=== PATIENT | female | born 1975 | race Caucasian/White ===

== ENCOUNTER 2018-04-07 15:58 | Outpatient (REF) | payer BC, SELFPAY ==
[2018-04-07 22:36] LABS: ALT 31 U/L (12-78); AST 21 U/L (15-37); Alkaline Phosphatase 51 U/L (46-116); Anion Gap 3.1 mmol/L (3-11); BUN 13 mg/dL (7-18); Bilirubin, Total 0.8 mg/dL (0.2-1.0); CO2 29.9 mmol/L (21.0-32.0); CREATININE 0.84 mg/dL (0.55-1.02); Calcium 9.1 mg/dL (8.5-10.1); Chloride 105 mmol/L (98-107); Glucose 123 mg/dL (70-100); Potassium 3.8 mmol/L (3.5-5.1); Sodium 138 mmol/L (136-145); TSH (W/Ref FT4) 12.78 uIU/mL (0.358-3.74); Total Protein 7.3 g/dL (6.4-8.2)
[2018-04-07 23:59] LABS: FREE T4 0.87 ng/dL (0.76-1.46)
== END 2018-04-07 16:18 ==
LOC: NCHCN 15:58
PROVIDERS: PCP Family Medicine; Visit Provider Family Medicine
DX: E03.9 Hypothyroidism, unspecified (principal); E10.9 Type 1 diabetes mellitus without complications
CPT/HCPCS: 80053; 84439; 84443

== ENCOUNTER 2018-05-24 09:04 | Outpatient (REF) | payer BC, SELFPAY ==
[2018-05-24 21:48] LABS: TSH (W/Ref FT4) 6.64 uIU/mL (0.358-3.74)
[2018-05-24 22:04] LABS: FREE T4 1.05 ng/dL (0.76-1.46)
== END 2018-05-24 09:24 ==
LOC: NCHCN 09:04
PROVIDERS: PCP Family Medicine; Visit Provider Family Medicine
DX: E03.9 Hypothyroidism, unspecified (principal)
CPT/HCPCS: 84439; 84443

== ENCOUNTER 2018-11-03 09:33 | Outpatient (REF) | payer BC, SELFPAY ==
[2018-11-03 22:16] LABS: TSH 7.62 uIU/mL (0.358-3.74)
== END 2018-11-03 09:53 ==
LOC: NCHCN 09:33
PROVIDERS: PCP Family Medicine; Visit Provider Registered Nurse
DX: E03.9 Hypothyroidism, unspecified (principal)
CPT/HCPCS: 84443

== ENCOUNTER 2019-02-02 08:55 | Outpatient (REF) | payer BC, SELFPAY ==
[2019-02-02 22:55] LABS: TSH 2.89 uIU/mL (0.358-3.74)
[2019-02-02 23:32] LABS: COMMENT (LAB VIEW ONLY) 24.43 mg/dL; Microalb ug/mg Crea 19.6 ug/mg Cr
== END 2019-02-02 09:15 ==
LOC: NCHCN 08:55
PROVIDERS: PCP Family Medicine; Visit Provider Registered Nurse
DX: E03.9 Hypothyroidism, unspecified (principal); E10.9 Type 1 diabetes mellitus without complications
CPT/HCPCS: 82043; 82570; 84443

== ENCOUNTER 2019-09-15 10:03 | Outpatient (REF) | payer OTHER, SELFPAY ==
[2019-09-15 21:28] LABS: TSH 7.74 uIU/mL (0.36-3.74)
== END 2019-09-15 10:23 ==
LOC: NCHCN 10:03
PROVIDERS: PCP Family Medicine; Visit Provider Registered Nurse
DX: E03.9 Hypothyroidism, unspecified (principal)
CPT/HCPCS: 84443

== ENCOUNTER 2020-03-14 22:16 | Outpatient (REF) | payer OTHER, SELFPAY ==
[2020-03-14 20:13] LABS: Calculated LDL 72 mg/dL (<100); Cholesterol 145 mg/dL (<200); HDL Cholesterol 68 mg/dL (40-60); TSH (W/Ref FT4) 1.79 uIU/mL (0.36-3.74); Triglyceride 27 mg/dL (<150)
== END 2020-03-14 22:36 ==
LOC: NCHCN 22:16
PROVIDERS: PCP Family Medicine; Visit Provider Registered Nurse
DX: E03.9 Hypothyroidism, unspecified (principal); E10.9 Type 1 diabetes mellitus without complications
CPT/HCPCS: 80061; 84443

== ENCOUNTER 2020-09-26 09:01 | Outpatient (REF) | payer OTHER, SELFPAY ==
[2020-09-26 13:23] LABS: Anion Gap 9.7 mmol/L (3-11); BUN 13 mg/dL (7-18); CO2 27.3 mmol/L (21.0-32.0); CREATININE 0.7 mg/dL (0.55-1.02); Calcium 8.7 mg/dL (8.5-10.1); Chloride 106 mmol/L (98-107); Glucose 63 mg/dL (74-106); Potassium 3.9 mmol/L (3.5-5.1); Sodium 143 mmol/L (136-145); TSH (W/Ref FT4) 1.42 uIU/mL (0.36-3.74)
[2020-09-26 13:59] LABS: COMMENT (LAB VIEW ONLY) < 13.00 mg/dL
== END 2020-09-26 09:02 | disposition home or self-care (01) ==
LOC: NCHCN 09:01
PROVIDERS: PCP Family Medicine; Visit Provider Registered Nurse
DX: E10.9 Type 1 diabetes mellitus without complications (principal); E03.9 Hypothyroidism, unspecified; Z00.00 Encounter for general adult medical examination without abnormal findings
CPT/HCPCS: 80048; 82043; 82570; 84443

== ENCOUNTER 2021-04-18 10:13 | Outpatient (REF) | payer OTHER, SELFPAY ==
[2021-04-18 14:14] LABS: Calculated LDL 77 mg/dL (<100); Cholesterol 163 mg/dL (<200); HDL Cholesterol 78 mg/dL (40-60); Triglyceride 40 mg/dL (<150)
== END 2021-04-18 10:14 | disposition home or self-care (01) ==
LOC: LBN 10:13
PROVIDERS: PCP Family Medicine; Referring Provider Nurse Practitioner Family; Visit Provider Family Medicine
DX: E10.9 Type 1 diabetes mellitus without complications (principal)
CPT/HCPCS: 80061

== ENCOUNTER 2021-07-02 10:15 | Outpatient (REF) | payer OTHER, SELFPAY ==
[2021-07-02 15:47] LABS: ALT 30 U/L (14-59); AST 14 U/L (15-37); Albumin 4.2 g/dL (3.4-5.0); Alkaline Phosphatase 57 U/L (46-116); Anion Gap 9.6 mmol/L (3-11); BUN 16 mg/dL (7-18); Bilirubin, Total 0.8 mg/dL (0.2-1.0); CO2 26.4 mmol/L (21.0-32.0); CREATININE 0.8 mg/dL (0.55-1.02); Calcium 9.1 mg/dL (8.5-10.1); Calculated LDL 82 mg/dL (<100); Chloride 100 mmol/L (98-107); Cholesterol 160 mg/dL (<200); Glucose 247 mg/dL (74-106); HDL Cholesterol 66 mg/dL (40-60); Potassium 4.7 mmol/L (3.5-5.1); Sodium 136 mmol/L (136-145); TSH 1.72 uIU/mL (0.36-3.74); Total Protein 7.2 g/dL (6.4-8.2); Triglyceride 63 mg/dL (<150)
[2021-07-02 16:01] LABS: COMMENT (LAB VIEW ONLY) 29.57 mg/dL; Microalb ug/mg Crea 7.1 ug/mg Cr
== END 2021-07-02 10:16 | disposition home or self-care (01) ==
LOC: LBN 10:15
PROVIDERS: PCP Family Medicine; Visit Provider Nurse Practitioner Family
DX: E10.65 Type 1 diabetes mellitus with hyperglycemia (principal)
CPT/HCPCS: 80053; 80061; 82043; 82570; 84443